=== PATIENT | female | born 1995 | race Caucasian/White ===

== ENCOUNTER → 2016-06-16 | Outpatient (REF) | payer BC ==
[2016-06-16 09:46] LABS: BASOPHILS % (AUTO) 1 % (0-2); EOSINOPHILS # (AUTO) 0.1 10^3uL; EOSINOPHILS % (AUTO) 2 % (0-4); LYMPHOCYTES # (AUTO) 1.8 X10^3; MEAN CORPUSCULAR HEMOGLOBIN 28.8 PG (26.0-34.0); MEAN CORPUSCULAR HGB CONC 34.3 g/dL (31.0-37.0); MEAN CORPUSCULAR VOLUME 84 FL (80-100); MEAN PLATELET VOLUME 9.4 FL (6.0-9.5); MONOCYTES # (AUTO) 0.5 X10^3; MONOCYTES % (AUTO) 12 % (3-11); NEUTROPHILS # (AUTO) 1.8 X10^3; NEUTROPHILS % (AUTO) 43 % (51-67); PLATELET COUNT 243 10^3uL (150-450); WHITE BLOOD COUNT 4.21 10^3uL (4.0-11.0)
== END ==
LOC: LAB 09:37
PROVIDERS: ATTEND Family Medicine
DX: G40.89 Other seizures (principal)
CPT/HCPCS: 85025